=== PATIENT | female | born 1970 | race Caucasian/White ===

== ENCOUNTER 2020-05-14 15:29 | Inpatient (IN) ==
[2020-05-15] MEDS: *HR* OxyCODONE Immed Rel 5 MG TABLET PO PRN ×3 (13:49→22:46)
[2020-05-15] MEDS ORDERED: Acetaminophen 325 MG TABLET PO PRN (14:01)
[2020-05-15 15:06] LABS: Basophils % 0.2 %; Eosinophils # 0.1 K/mcL (0.0-0.6); Eosinophils % 2.4 %; Hematocrit 22.2 % (35.3-44.9); Hemoglobin 7.2 g/dL (11.5-15.4); Lymphocytes # 0.8 K/mcL (0.6-4.6); Lymphocytes % 18.6 %; Mean Corpuscular HGB Conc 32.4 g/dL (31.6-35.5); Mean Corpuscular Hemoglobin 28.2 pg (28.0-33.3); Mean Corpuscular Volume 87.1 fL (83.0-100.0); Mean Platelet Volume 12.6 fL (9.4-12.4); Monocytes # 0.3 K/mcL (0.0-1.3); Monocytes % 6.2 %; Nucleated Red Blood Cells 0.5 /100 WBC (0); Platelet Count 130 K/mcL (140-400); Red Blood Count 2.55 M/mcL (3.82-4.97); Segmented Neutrophils % 71.6 %; White Blood Count 4.2 K/mcL (4.3-11.1)
[2020-05-15 15:18] LABS: BUN/Creatinine Ratio 19 (6-26); Blood Urea Nitrogen 11 mg/dL (6-20); Calcium 7.1 mg/dL (8.6-10.3); Carbon Dioxide 31 mEq/L (23-29); Chloride 102 mEq/L (98-107); Glucose 135 mg/dL (70-105); Osmolality,Calculated 285 (280-300); Sodium 137 mEq/L (136-145); eGFR For African Americans > 60 (> 60); eGFR For Non-African Americans > 60 (> 60)
[2020-05-15] MEDS: Gabapentin 300 MG CAPSULE PO SCH ×2 (15:56→22:45)
[2020-05-15] MEDS: Cholecalciferol (D-3) 1,000 UNIT (25MCG) TABLET PO SCH ×2 (15:56→22:45)
[2020-05-15] MEDS ORDERED: Acetaminophen 325 MG TABLET PO SCH (18:00)
[2020-05-15] MEDS ORDERED: 0.9 % Sodium Chloride 250 ML ONE (18:28)
[2020-05-15] MEDS ORDERED: traZODone 50 MG TABLET PO SCH (21:00)
[2020-05-15] MEDS: cephALEXin 500 MG CAPSULE PO SCH (22:45)
[2020-05-15] MEDS: Sennosides 8.6 MG TABLET PO SCH (22:45)
[2020-05-16] MEDS: *HR* OxyCODONE Immed Rel 5 MG TABLET PO PRN ×4 (06:00→22:10)
[2020-05-16] MEDS: *HR* Enoxaparin 40 MG/0.4 ML SYRINGE SQ SCH (06:00)
[2020-05-16 07:06] LABS: Basophils % 0.5 %; Eosinophils # 0.2 K/mcL (0.0-0.6); Eosinophils % 4.3 %; Hematocrit 24.7 % (35.3-44.9); Immature Granulocytes % 1.1 % (0-4); Lymphocytes # 0.9 K/mcL (0.6-4.6); Lymphocytes % 21.2 %; Mean Corpuscular HGB Conc 32.4 g/dL (31.6-35.5); Mean Corpuscular Hemoglobin 28.4 pg (28.0-33.3); Mean Corpuscular Volume 87.6 fL (83.0-100.0); Mean Platelet Volume 12.2 fL (9.4-12.4); Monocytes # 0.4 K/mcL (0.0-1.3); Monocytes % 9.8 %; Neutrophils # 2.8 K/mcL (1.6-8.9); Nucleated Red Blood Cells 0.9 /100 WBC (0); Platelet Count 154 K/mcL (140-400); Red Blood Count 2.82 M/mcL (3.82-4.97); Segmented Neutrophils % 63.1 %; White Blood Count 4.4 K/mcL (4.3-11.1)
[2020-05-16 07:23] LABS: BUN/Creatinine Ratio 15 (6-26); Blood Urea Nitrogen 7 mg/dL (6-20); Calcium 7.2 mg/dL (8.6-10.3); Carbon Dioxide 30 mEq/L (23-29); Chloride 102 mEq/L (98-107); Glucose 90 mg/dL (70-105); Osmolality,Calculated 280 (280-300); Potassium 4.1 mEq/L (3.5-5.1); Sodium 136 mEq/L (136-145); eGFR For African Americans > 60 (> 60); eGFR For Non-African Americans > 60 (> 60)
[2020-05-16] MEDS ORDERED: hydroCHLOROthiazide 25 MG TABLET PO SCH (09:00)
[2020-05-16] MEDS: Gabapentin 300 MG CAPSULE PO SCH ×3 (09:02→21:03)
[2020-05-16] MEDS: cephALEXin 500 MG CAPSULE PO SCH ×2 (09:02→21:03)
[2020-05-16] MEDS: Loratadine 10 MG TABLET PO SCH (09:03)
[2020-05-16] MEDS: Cholecalciferol (D-3) 1,000 UNIT (25MCG) TABLET PO SCH ×3 (09:03→21:03)
[2020-05-16] MEDS: Sennosides 8.6 MG TABLET PO SCH ×2 (09:04→21:04)
[2020-05-16] MEDS ORDERED: Acetaminophen 325 MG TABLET PO PRN (10:27)
[2020-05-16] MEDS: Ibuprofen 800 MG TABLET PO PRN (14:39)
[2020-05-16] MEDS ORDERED: Lactulose Oral Soln 20 GM/30 ML UDC PO PRN (22:51)
[2020-05-16] MEDS ORDERED: Bisacodyl 10 MG RECTAL SUPPOSITORY RC PRN (22:51)
[2020-05-16] MEDS: polyethylene glycoL 3350 17 GM POWD.PACK PO SCH (23:14)
[2020-05-17] MEDS: *HR* OxyCODONE Immed Rel 5 MG TABLET PO PRN ×3 (03:16→18:15)
[2020-05-17] MEDS: *HR* Enoxaparin 40 MG/0.4 ML SYRINGE SQ SCH (05:16)
[2020-05-17] MEDS: polyethylene glycoL 3350 17 GM POWD.PACK PO SCH (08:57)
[2020-05-17] MEDS: Cholecalciferol (D-3) 1,000 UNIT (25MCG) TABLET PO SCH ×3 (08:57→20:06)
[2020-05-17] MEDS: Gabapentin 300 MG CAPSULE PO SCH ×3 (08:58→20:05)
[2020-05-17] MEDS: cephALEXin 500 MG CAPSULE PO SCH ×2 (08:58→20:06)
[2020-05-17] MEDS: Loratadine 10 MG TABLET PO SCH (08:58)
[2020-05-17] MEDS: Sennosides 8.6 MG TABLET PO SCH ×2 (08:58→20:04)
[2020-05-17 18:44] LABS: Bilirubin,Urine Negative (Negative); Blood,Urine Trace-intact (Negative); Clarity,Urine Clear (Clear); Color,Urine Yellow (Yellow); Glucose,Urine (UA) Normal (Normal); Ketones,Urine Negative (Negative); Leukocyte Esterase,Urine Negative (Negative); Nitrite,Urine Negative (Negative); Protein,Urine 30 mg/dL (Neg-Trace); Specific Gravity,Urine 1.025 (1.010-1.025)
[2020-05-17 18:54] LABS: Bacteria,Urine None Seen per hpf (None-Few); RBC,Urine 0-3 per hpf (0-3); Squamous Epithelial Cell,Urine Few per hpf (None-Few); WBC,Urine 0-3 per hpf (0-3)
[2020-05-18] MEDS: *HR* OxyCODONE Immed Rel 5 MG TABLET PO PRN ×4 (05:49→22:11)
[2020-05-18] MEDS: *HR* Enoxaparin 40 MG/0.4 ML SYRINGE SQ SCH (05:52)
[2020-05-18 06:17] LABS: Hematocrit 27.2 % (35.3-44.9); Hemoglobin 8.6 g/dL (11.5-15.4); Mean Corpuscular HGB Conc 31.6 g/dL (31.6-35.5); Mean Corpuscular Hemoglobin 27.9 pg (28.0-33.3); Mean Corpuscular Volume 88.3 fL (83.0-100.0); Mean Platelet Volume 12.4 fL (9.4-12.4); Platelet Count 233 K/mcL (140-400); Red Blood Count 3.08 M/mcL (3.82-4.97); Red Cell Distribution Width 15.1 % (11.5-14.5); White Blood Count 4.7 K/mcL (4.3-11.1)
[2020-05-18 06:32] LABS: Alanine Aminotransferase 77 Units/L (7-52); Albumin 2.8 g/dL (3.5-5.7); Albumin/Globulin Ratio 1.3 (1.1-2.2); Alkaline Phosphatase 126 Units/L (34-104); Aspartate Amino Transferase 61 Units/L (13-39); BUN/Creatinine Ratio 11 (6-26); Bilirubin,Total 0.4 mg/dL (0.3-1.0); Blood Urea Nitrogen 5 mg/dL (6-20); Calcium 8.2 mg/dL (8.6-10.3); Carbon Dioxide 32 mEq/L (23-29); Chloride 99 mEq/L (98-107); Globulin 2.2 g/dL (2.4-3.5); Glucose 89 mg/dL (70-105); Osmolality,Calculated 277 (280-300); Potassium 4.1 mEq/L (3.5-5.1); Sodium 135 mEq/L (136-145); eGFR For African Americans > 60 (> 60); eGFR For Non-African Americans > 60 (> 60)
[2020-05-18] MEDS: Loratadine 10 MG TABLET PO SCH (08:38)
[2020-05-18] MEDS: Cholecalciferol (D-3) 1,000 UNIT (25MCG) TABLET PO SCH ×2 (08:38→14:28)
[2020-05-18] MEDS: cephALEXin 500 MG CAPSULE PO SCH ×2 (08:39→22:14)
[2020-05-18] MEDS: polyethylene glycoL 3350 17 GM POWD.PACK PO SCH (08:40)
[2020-05-18] MEDS: Gabapentin 300 MG CAPSULE PO SCH ×3 (08:40→22:12)
[2020-05-18] MEDS: Sennosides 8.6 MG TABLET PO SCH ×2 (08:44→22:12)
[2020-05-18 10:16] LABS: Magnesium 1.8 mg/dL (1.6-2.6)
[2020-05-18 11:41] LABS: % Iron Saturation 7 % (15-50); Iron 21 mcg/dL (50-170); Transferrin 207 mg/dL (203-362)
[2020-05-18 12:06] LABS: Folate 18.4 ng/mL (3.0-16.0)
[2020-05-18] MEDS: Lactulose Oral Soln 20 GM/30 ML UDC PO SCH (22:15)
[2020-05-19] MEDS: Cholecalciferol (D-3) 1,000 UNIT (25MCG) TABLET PO SCH ×4 (01:01→21:41)
[2020-05-19] MEDS: *HR* Enoxaparin 40 MG/0.4 ML SYRINGE SQ SCH (06:41)
[2020-05-19] MEDS: Bisacodyl 10 MG RECTAL SUPPOSITORY RC SCH ×2 (06:42→08:29)
[2020-05-19] MEDS: Loratadine 10 MG TABLET PO SCH (08:27)
[2020-05-19] MEDS: *HR* OxyCODONE Immed Rel 5 MG TABLET PO PRN (08:28)
[2020-05-19] MEDS: cephALEXin 500 MG CAPSULE PO SCH ×2 (08:28→21:41)
[2020-05-19] MEDS: Gabapentin 300 MG CAPSULE PO SCH ×3 (08:28→21:41)
[2020-05-19] MEDS: Sennosides 8.6 MG TABLET PO SCH ×2 (08:28→21:41)
[2020-05-19] MEDS: polyethylene glycoL 3350 17 GM POWD.PACK PO SCH (08:29)
[2020-05-19] MEDS: Lactulose Oral Soln 20 GM/30 ML UDC PO SCH ×2 (08:29→21:41)
[2020-05-19] MEDS: Melatonin 3 MG TABLET PO PRN (21:41)
[2020-05-20] MEDS: *HR* Enoxaparin 40 MG/0.4 ML SYRINGE SQ SCH (06:26)
[2020-05-20] MEDS: *HR* OxyCODONE Immed Rel 5 MG TABLET PO PRN ×3 (06:26→19:01)
[2020-05-20] MEDS: Gabapentin 300 MG CAPSULE PO SCH ×3 (08:47→22:06)
[2020-05-20] MEDS: cephALEXin 500 MG CAPSULE PO SCH ×2 (08:48→22:04)
[2020-05-20] MEDS: Sennosides 8.6 MG TABLET PO SCH ×2 (08:48→22:03)
[2020-05-20] MEDS: Loratadine 10 MG TABLET PO SCH (08:48)
[2020-05-20] MEDS: Cholecalciferol (D-3) 1,000 UNIT (25MCG) TABLET PO SCH ×3 (08:48→22:05)
[2020-05-20] MEDS: Bisacodyl 10 MG RECTAL SUPPOSITORY RC SCH ×2 (09:10→15:24)
[2020-05-20] MEDS: Lactulose Oral Soln 20 GM/30 ML UDC PO SCH ×2 (09:10→22:08)
[2020-05-20] MEDS: polyethylene glycoL 3350 17 GM POWD.PACK PO SCH (09:10)
[2020-05-20] MEDS: Melatonin 3 MG TABLET PO PRN (22:01)
[2020-05-21] MEDS: *HR* OxyCODONE Immed Rel 5 MG TABLET PO PRN ×3 (04:18→15:25)
[2020-05-21] MEDS: *HR* Enoxaparin 40 MG/0.4 ML SYRINGE SQ SCH (04:18)
[2020-05-21] MEDS: Gabapentin 300 MG CAPSULE PO SCH ×3 (08:55→19:56)
[2020-05-21] MEDS: Loratadine 10 MG TABLET PO SCH (08:55)
[2020-05-21] MEDS: cephALEXin 500 MG CAPSULE PO SCH ×2 (08:55→19:56)
[2020-05-21] MEDS: Sennosides 8.6 MG TABLET PO SCH ×2 (08:55→19:57)
[2020-05-21] MEDS: Cholecalciferol (D-3) 1,000 UNIT (25MCG) TABLET PO SCH ×3 (08:55→19:56)
[2020-05-21] MEDS: Lactulose Oral Soln 20 GM/30 ML UDC PO SCH ×2 (08:56→19:56)
[2020-05-21] MEDS: polyethylene glycoL 3350 17 GM POWD.PACK PO SCH (08:56)
[2020-05-21] MEDS: Melatonin 3 MG TABLET PO PRN (19:57)
[2020-05-22] MEDS: *HR* Enoxaparin 40 MG/0.4 ML SYRINGE SQ SCH (05:26)
[2020-05-22 05:43] LABS: Basophils % 0.2 %; Eosinophils # 0.3 K/mcL (0.0-0.6); Eosinophils % 4.9 %; Hematocrit 26.5 % (35.3-44.9); Hemoglobin 8.3 g/dL (11.5-15.4); Immature Granulocytes % 1.1 % (0-4); Lymphocytes # 0.9 K/mcL (0.6-4.6); Lymphocytes % 14.9 %; Mean Corpuscular HGB Conc 31.3 g/dL (31.6-35.5); Mean Corpuscular Hemoglobin 27.2 pg (28.0-33.3); Mean Corpuscular Volume 86.9 fL (83.0-100.0); Mean Platelet Volume 12.3 fL (9.4-12.4); Monocytes # 0.5 K/mcL (0.0-1.3); Monocytes % 9.5 %; Platelet Count 299 K/mcL (140-400); Red Blood Count 3.05 M/mcL (3.82-4.97); Red Cell Distribution Width 15.2 % (11.5-14.5); Segmented Neutrophils % 69.4 %; White Blood Count 5.7 K/mcL (4.3-11.1)
[2020-05-22 05:56] LABS: BUN/Creatinine Ratio 13 (6-26); Blood Urea Nitrogen 7 mg/dL (6-20); Calcium 8.3 mg/dL (8.6-10.3); Carbon Dioxide 26 mEq/L (23-29); Chloride 102 mEq/L (98-107); Glucose 91 mg/dL (70-105); Osmolality,Calculated 278 (280-300); Potassium 3.9 mEq/L (3.5-5.1); Sodium 135 mEq/L (136-145); eGFR For African Americans > 60 (> 60); eGFR For Non-African Americans > 60 (> 60)
[2020-05-22 07:24] VITALS: BP 133/79
[2020-05-22] MEDS: *HR* OxyCODONE Immed Rel 5 MG TABLET PO PRN ×2 (07:30→13:54)
[2020-05-22] MEDS: Gabapentin 300 MG CAPSULE PO SCH ×2 (08:55→13:54)
[2020-05-22] MEDS: Cholecalciferol (D-3) 1,000 UNIT (25MCG) TABLET PO SCH ×2 (08:55→13:54)
[2020-05-22] MEDS: Loratadine 10 MG TABLET PO SCH (08:55)
[2020-05-22] MEDS: cephALEXin 500 MG CAPSULE PO SCH (08:56)
[2020-05-22] MEDS: Sennosides 8.6 MG TABLET PO SCH (08:56)
[2020-05-22] MEDS: Ibuprofen 800 MG TABLET PO PRN (08:56)
[2020-05-22] MEDS: polyethylene glycoL 3350 17 GM POWD.PACK PO SCH (08:57)
[2020-05-22] MEDS: Lactulose Oral Soln 20 GM/30 ML UDC PO SCH (08:57)
[2020-05-22] MEDS: Bisacodyl 10 MG RECTAL SUPPOSITORY RC SCH (08:57)
== END 2020-05-22 15:15 | disposition home or self-care (01) | DRG 560 ==
LOC: INPGRE 05-15 13:19
PROVIDERS: ADMIT Family Medicine; ATTEND Family Medicine